=== PATIENT | male | born 1955 | race Hispanic/Latino ===

== ENCOUNTER 2021-10-08 11:10 | Day surgery (SDC) | payer MEDICARE ==
[2021-10-04 09:51] LABS: BASOPHILS % (AUTO) 0.6 % (0.0-5.0); EOSINOPHILS % (AUTO) 8.5 % (0.0-8.0); LYMPHOCYTES % (AUTO) 29.9 % (21.0-51.0); MEAN CORPUSCULAR HEMOGLOBIN 28.7 pg (27.0-33.0); MEAN CORPUSCULAR HGB CONC 33.1 g/dL (32.0-36.0); MEAN CORPUSCULAR VOLUME 86.6 fL (79-99); MONOCYTES % (AUTO) 8.4 % (3.0-13.0); NEUTROPHILS % (AUTO) 52.4 % (40.0-77.0); PLATELET COUNT (AUTO) 174 K/uL (130-400); RED BLOOD CELL COUNT(AUTO) 4.85 MIL/uL (4.50-6.20); RED CELL DISTRIBUTION WIDTH 13.9 % (11.0-15.5); WHITE BLOOD COUNT (AUTO) 9.3 K/uL (4.8-10.8)
[2021-10-04 09:59] LABS: CREATININE 1.3 mg/dL (0.5-1.5); POTASSIUM 4.3 mmol/L (3.5-5.1)
[2021-10-04 10:01] LABS: INR 1.02 (0.85-1.15); PROTHROMBIN TIME 11.1 SEC (9.6-11.6)
[2021-10-04 10:02] LABS: PARTIAL THROMBOPLASTIN TIME 28.7 SEC (26.3-35.5)
[2021-10-04 10:36] LABS: APPEARANCE,URINE Clear (CLEAR); BILIRUBIN,URINE Negative (NEGATIVE); COLOR,URINE Yellow (YELLOW); GLUCOSE, URINE (UA) Negative (NEGATIVE); KETONES,URINE Negative (NEGATIVE); LEUKOCYTE ESTERASE ,URINE Negative (NEGATIVE); NITRATE,URINE Negative (NEGATIVE); OCCULT BLOOD,URINE Negative (NEGATIVE); PROTEIN,URINE Trace mg/dL (NEGATIVE)
[2021-10-04 10:50] LABS: BACTERIA,URINE Rare /HPF (None Seen); RBC,URINE None Seen /HPF (0-1); SQUAMOUS EPITHELIAL CELL,UR 0-2 /HPF (0-2); WBC,URINE 0-1 /HPF (0-1)
[2021-10-07 09:21] VITALS: BP 140/80
[2021-10-08] VITALS (9 sets, daily range): BP systolic 151–213; BP diastolic 48–84
[~2021-10-08] VITALS: Ht 170.2 cm; Wt 163.1 kg
[~2021-10-08 11:10] MED LIST: 0.9% NACL 500ML IV.SOLN 500 ML IV SCH; 0.9%NACL 1000ML 1,000 ML IV ONE; AEC81 PO; AMLO-258 PO; DiphenhydrAMINE HCL 50 MG/ML VIAL IVP SCH; ESOM40CA54 PO; GABA100C PO; GLIP5TAB11 PO; HYDR25TA PO; LOSA100T58 PO; METF-446 PO; PRAV40TA3 PO; SOLU-MEDROL 125MG VIAL IVP SCH; VITAMIN D PO
[2021-10-08] MEDS ORDERED: 0.9%NACL 1000ML 1,000 ML IV ONE (11:35)
[2021-10-08] MEDS ORDERED: GABA-529 PO (12:12)
[2021-10-08] MEDS ORDERED: IOHEXOL 350 MG/ML 100ML INFUS..BTL IV ONE (13:00)
[2021-10-08] MEDS ORDERED: HEPARIN 10,000 UNIT/10ML (1,000 UNIT/ML) VIAL ONE (13:00)
[2021-10-08] MEDS ORDERED: NITROGLYCERIN 50MG VIAL ONE (13:00)
[2021-10-08] MEDS ORDERED: IOHEXOL-350 50ML VIAL IV ONE (13:00)
[2021-10-08] MEDS ORDERED: FENTANYL CITRATE PF 50 MCG/1 ML 2ML VIAL ONE (13:01)
[2021-10-08] MEDS ORDERED: MIDAZOLAM HCL 1 MG/ML 2ML VIAL ONE (13:01)
[2021-10-08] MEDS ORDERED: LIDOCAINE HCL 400MG/20ML VIAL ONE (13:02)
[2021-10-08] MEDS ORDERED: FUROSEMIDE 20MG VIAL ONE (13:50)
== END 2021-10-08 17:15 | disposition home or self-care (01) ==
LOC: DAH 11:10
PROVIDERS: ATTEND Internal Medicine Cardiovascular Disease
DX: R06.02 Shortness of breath (principal); I11.0 Hypertensive heart disease with heart failure; I50.32 Chronic diastolic (congestive) heart failure; E11.9 Type 2 diabetes mellitus without complications; E78.5 Hyperlipidemia, unspecified; M79.606 Pain in leg, unspecified; Z90.49 Acquired absence of other specified parts of digestive tract; Z98.890 Other specified postprocedural states; Z82.49 Family history of ischemic heart disease and other diseases of the circulatory system; Z79.82 Long term (current) use of aspirin; Z79.84 Long term (current) use of oral hypoglycemic drugs; Z88.0 Allergy status to penicillin; Z79.01 Long term (current) use of anticoagulants; Z79.899 Other long term (current) drug therapy
CPT/HCPCS: 36415; 71045; 80048; 81001; 82948; 85025; 85610; 85730; 93005; 93458; A4215; A4216; A4221; A4222; A4223 ×3; A4606; A4663; C1760; C1894; J1200; J1644; J1940; J2250; J3010; J3490 ×2; J7030 ×2; Q9965; Q9967; 96365; 96366; 99156; 99157